=== PATIENT | female | born 1965 | race Asian ===

== ENCOUNTER 2018-03-12 18:34 | Emergency (ER) | payer OTHER, SELFPAY ==
[2018-03-12 18:36] VITALS: BP 192/101; PULSE 75; RESP 20; TEMP 36.2; O2SAT 99; BMI 27.8
--- NOTE | 2018-03-12 18:53 | ED.CHESTPAIN ---
HPI - Chest Pain General Chief Complaint: Chest Pain Stated Complaint: SYMPTOMS OF HEART ATTACK Time Seen by Provider: 03/12/18 18:48 Source: patient Mode of arrival: ambulatory Limitations: no limitations History of Present Illness HPI narrative: Patient is a 53-year-old female sent in from the walk-in clinic with chest pain. She has had left-sided chest pain for the last 3 days it has an once by radiates around to the back. It sometimes hurts when she moves her arm and sometimes when she breathes. She has noted that she has had elevated blood pressure as well. 4 years ago she was told she had high blood pressure but just to monitor at. She denies headache nausea vomiting abdominal pain. The she did travel to [facility] back in November but no recent travel MD complaint: chest pain Related Data Allergies Allergy/AdvReac Type Severity Reaction Status Date / Time peach Allergy Severe Swollen Verified 03/12/18 18:12 mouth/throat, rash apple Allergy Mild Itchy mouth Verified 03/12/18 18:12 Review of Systems Review of Systems GENERAL: Denies chills, fatigue, malaise, fever, sweats, travel HEENT: Denies sinus pain, ear pain, sore throat, difficulty swallowing, neck pain RESPIRATORY: Denies dyspnea, cough, wheezing, hemoptysis, sputum. CARDIOVASCULAR: See HPI GASTROINTESTINAL: Denies nausea, vomiting, abdominal pain, diarrhea, constipation, melena. : Denies dysuria, frequency, incontinence, hematuria, urinary retention, flank pain. MUSCULOSKELETAL: Denies weakness, joint pain, or bony pain SKIN: No rash, no erythema, no pruritus NEUROLOGIC: Denies weakness, dizziness, headache, numbness, change in speech, confusion PSYCHIATRIC: No concerning psychosocial issues. 12 point review of systems is negative except for those stated above and HPI ON LICENSE OF [facility] Medical History Healthy adult (Acute) Social History Smoking Status: Never smoker alcohol intake: never substance use type: does not use Exam Initial Vital Signs Initial Vital Signs: Vital Signs Temperature 97.1 F L 03/12/18 18:36 Pulse Rate 75 03/12/18 18:36 Respiratory Rate 20 03/12/18 18:36 Blood Pressure 192/101 H 03/12/18 18:36 Pulse Oximetry 99 03/12/18 18:36 GENERAL: Well-appearing, well-nourished and in no acute distress. HEENT: Head atraumatic,EOMI, pupils reactive, neck is supple CARDIOVASCULAR: Regular rate and rhythm without murmurs, rubs or gallops. Pain in left 3rd rib space slightly reproducible with palpation and left arm movement RESPIRATORY: Breath sounds equal bilaterally, no wheezes rales or rhonchi. ABDOMEN: Soft, nontender. Normoactive bowel sounds all 4 quadrants. No guarding or rebound. EXTREMITIES: Normal range of motion, no clubbing or edema. Neurovascularly intact NEUROLOGICAL: Alert and oriented x4.Normal gait and speech. Cranial nerves II through XII grossly intact. SKIN: Warm, dry, no laceration, no petechiae, no rashes or lesions. Scores HEART Score Heart Score history: Slightly Suspicious Heart Score EKG: Normal Heart Score Age: 45-64 years old Heart Score risk factors: 1-2 risk factors Heart Score troponin: < or = to normal limit Heart Score Total: 2 PERC Score Age greater than or equal to 50 years: Yes Heart rate greater than or equal to 100 bpm: No Room Air O2 Sat less than 95%: No Unilateral leg swelling: No Recent trauma or surgery: No Hemoptysis: No Prior PE or DVT: No Hormone Use: No Total PERC Score: 1 Course Orders Ordered: Discontinued Medications Aspirin (Aspirin Chew) 324 mg PO NOW ONE Stop: 03/12/18 18:59 Last Admin: 03/12/18 19:20 Dose: 324 mg Vital Signs - 8 hr 03/12/18 20:19 Pulse Rate 66 Respiratory Rate 16 Blood Pressure [Left Arm] 142/84 H Pulse Oximetry 100 MDM - Chest Pain Lab Data Attestation: I reviewed the patient's lab results. Result diagrams: 03/12/18 19:06 03/12/18 19:06 Lab Results 03/12/18 03/12/18 03/12/18 Range/Units 19:06 19:06 19:06 WBC 7.2 (4.5-11.0) X10^3/uL RBC 4.30 (4.0-5.2) X10^6/uL Hgb 13.2 (12.0-16.0) g/dL Hct 37.8 (36-46) % MCV 87.8 (80-100) fL MCH 30.7 (26-34) PG MCHC 35.0 (30-36) % RDW 12.7 (11.6-14.8) % Plt Count 310 (150-400) X10^3/uL Neut % (Auto) 48.9 L (50-75) % Lymph % (Auto) 43.1 H (25-40) % [place] % (Auto) 5.9 (3-14) % Eos % (Auto) 1.7 L (2-4) % Baso % (Auto) 0.4 (0-2) % Neut # (Auto) 3500 (3535-2377) /uL D-Dimer < 200 (<230) ng/mL Sodium 141 (137-145) mmol/L Potassium 5.0 (3.4-5.1) mmol/L Chloride 104 (98-107) mmol/L Carbon Dioxide 25 (22-32) mmol/L BUN 14 (7-17) mg/dL Creatinine 0.50 L (0.52-1.04) mg/dL Estimated GFR > 60.0 (>60) mL/min BUN/Creatinine Ratio 28.0 H (6-22) Glucose 109 H (70-100) mg/dL Calcium 9.7 (8.4-10.2) mg/dL Total Bilirubin 1.2 (0.2-1.3) mg/dL AST 44 H (14-36) IU/L ALT 22 (9-52) IU/L Alkaline Phosphatase 65 (38-126) U/L Total Creatine Kinase 112 (30-135) U/L CK-MB (CK-2) 0.62 (<2.37) ng/mL CK-MB (CK-2) Rel Index 0.6 L (1.5-5.0) % Troponin I < 0.012 (0.01-0.034) ng/mL Total Protein 8.7 H (6.3-8.2) g/dL Albumin 5.1 H (3.5-5.0) g/dL Globulin 3.6 (1.7-4.1) g/dL Albumin/Globulin Ratio 1.4 (1.0-2.8) Lipase 104 (23-300) U/L Imaging Data Chest x-ray: Radiologist's impression: PROCEDURE: XR CHEST 1V INDICATIONS: chest pain TECHNIQUE: One view of the chest was acquired. COMPARISON: None. FINDINGS: Surgical changes and devices: None. Lungs and pleura: No pleural effusions or pneumothorax. Opacity projects over the right fifth and sixth posterior ribs and may represent an EKG lead and otherwise the lungs are clear. Mediastinum: Mediastinal contours appear normal. Heart size is normal. Bones and chest wall: No suspicious bony lesions. Overlying soft tissues appear unremarkable. IMPRESSION: Opacity projecting over the right midlung is likely outside of the body possibly representing an EKG lead. Please correlate with physical exam. Otherwise, no radiographic evidence of acute cardiopulmonary pathology. Dictated by: Celestino Stanton M.D. on 03/12/2018 at 19:32 Approved by: Celestino Stanton M.D. on 03/12/2018 at 19:36 ECG Data Attestation: I personally reviewed and interpreted this ECG as follows: Prior ECG tracings: not available for review MDM Narrative Medical decision making narrative: Patient's pain is worse with movement. Ongoing for the last 3 days low risk for PE and low risk for cardiac disease. Blood pressure decreased significantly without any intervention. Then the lesser recommend she follow up with the primary care physician. Discharge Plan Departure Patient Disposition: Home, Self-Care Clinical Impression: Atypical chest pain Discharge Date/Time: 03/12/18 20:48 Interventions: ED Discharge Assessment Last Done: 03/12/18 20:47 Instructions: Essential Hypertension, DI for Atypical Chest Pain Activity Restrictions/Additional Instructions: *You have been diagnosed with atypical chest pain *What to do: Blood pressure has decreased while in the emergency department, recommend following up with her primary care provider. May require further cardiac testing but at this time not indicated *Continue to take medications as directed *Follow up with your primary care provider in 2-3 days *Return to ER if you should have worsening or changing chest pain, shortness of breath, palpitation or any new, worsening or concerning symptoms
--- NOTE | 2018-03-12 18:58 | DI.RAD.S_ITS ---
PROCEDURE: XR CHEST 1V INDICATIONS: chest pain TECHNIQUE: One view of the chest was acquired. COMPARISON: None. FINDINGS: Surgical changes and devices: None. Lungs and pleura: No pleural effusions or pneumothorax. Opacity projects over the right fifth and sixth posterior ribs and may represent an EKG lead and otherwise the lungs are clear. Mediastinum: Mediastinal contours appear normal. Heart size is normal. Bones and chest wall: No suspicious bony lesions. Overlying soft tissues appear unremarkable. IMPRESSION: Opacity projecting over the right midlung is likely outside of the body possibly representing an EKG lead. Please correlate with physical exam. Otherwise, no radiographic evidence of acute cardiopulmonary pathology. Dictated by: Celestino Stanton M.D. on 03/12/2018 at 19:32 Approved by: Celestino Stanton M.D. on 03/12/2018 at 19:36
[2018-03-12 19:19] LABS: Add Manual Diff / Slide Review NO; Basophils Percent Auto 0.4 % (0-2); Eosinophils Percent Auto 1.7 % (2-4); Hematocrit 37.8 % (36-46); Hemoglobin 13.2 g/dL (12.0-16.0); Lymphocytes Percent Auto 43.1 % (25-40); Mean Corpuscular Hemoglobin 30.7 PG (26-34); Mean Corpuscular Volume 87.8 fL (80-100); Monocytes Percent Auto 5.9 % (3-14); Neutrophils Absolute Auto 3500 /uL (3000-5900); Neutrophils Percent Auto 48.9 % (50-75); Platelet Count 310 X10^3/uL (150-400); Red Cell Distribution Width 12.7 % (11.6-14.8); White Blood Cell Count 7.2 X10^3/uL (4.5-11.0)
[2018-03-12] MEDS: ASPIRIN 81 MG TAB 324 MG PO (19:20)
[2018-03-12 19:31] LABS: Alanine Aminotransferase 22 IU/L (9-52); Albumin 5.1 g/dL (3.5-5.0); Albumin Globulin Ratio 1.4 (1.0-2.8); Alkaline Phosphatase 65 U/L (38-126); Bilirubin Total 1.2 mg/dL (0.2-1.3); Blood Urea Nitrogen 14 mg/dL (7-17); Calcium 9.7 mg/dL (8.4-10.2); Carbon Dioxide 25 mmol/L (22-32); Chloride 104 mmol/L (98-107); Creatine Kinase 112 U/L (30-135); Estimated Glomerular Filt Rate > 60.0 mL/min (>60); Globulin 3.6 g/dL (1.7-4.1); Glucose 109 mg/dL (70-100); Lipase 104 U/L (23-300); Sodium 141 mmol/L (137-145); Total Protein 8.7 g/dL (6.3-8.2)
[2018-03-12 19:35] LABS: Aspartate Aminotransferase 44 IU/L (14-36)
[2018-03-12 19:40] VITALS: BP 144/98; PULSE 64; RESP 16; O2SAT 100
[2018-03-12 19:43] LABS: Troponin I < 0.012 ng/mL (0.01-0.034)
[2018-03-12 19:46] LABS: CKMB % Relative Index 0.6 % (1.5-5.0); Creatine Kinase MB 0.62 ng/mL (<2.37)
[2018-03-12 19:52] LABS: HEMOLYSIS 164 (0-50)
[2018-03-12 19:54] LABS: D Dimer < 200 ng/mL (<230)
[2018-03-12 20:19] VITALS: BP 142/84; PULSE 66; RESP 16; O2SAT 100
== END 2018-03-12 20:48 | disposition home or self-care (01) ==
PROVIDERS: Emergency Provider Emergency Medicine
DX: R07.89 Other chest pain (principal)
CPT/HCPCS: 36591; 71045; 80053; 82550; 82553; 83690; 84484; 85025; 85379; 93005; 99283; 99285

== ENCOUNTER → 2018-08-30 08:47 | Outpatient (CLI) | payer OTHER, SELFPAY ==
[2018-08-30 09:39] LABS: Cholesterol 221 mg/dL (140-199); HDL Cholesterol 40 mg/dL (40-60); LDL Cholesterol Calculated 139 mg/dL (<100); Triglycerides 209 mg/dL (35-150)
[2018-09-02 15:35] LABS: Fecal Immunochemical Test NOT DETECTED
== END ==
PROVIDERS: Visit Provider Family Medicine
DX: I10 Essential (primary) hypertension (principal)
CPT/HCPCS: 80061; 82274

== ENCOUNTER → 2020-04-20 08:56 | Outpatient (CLI) | payer OTHER, SELFPAY ==
[2020-04-20 10:21] LABS: Alanine Aminotransferase 50 IU/L (<35); Albumin 4.6 g/dL (3.5-5.0); Albumin Globulin Ratio 1.4 (1.0-2.8); Alkaline Phosphatase 82 U/L (38-126); Aspartate Aminotransferase 44 IU/L (14-36); BUN Creatinine Ratio 24.6 (6-22); Bilirubin Total 0.6 mg/dL (0.2-1.3); Blood Urea Nitrogen 14 mg/dL (7-17); Calcium 9.7 mg/dL (8.4-10.2); Carbon Dioxide 24 mmol/L (22-32); Chloride 104 mmol/L (98-107); Cholesterol 230 mg/dL (140-199); Estimated Glomerular Filt Rate > 60.0 mL/min (>60); Globulin 3.3 g/dL (1.7-4.1); Glucose 122 mg/dL (70-100); HDL Cholesterol 44 mg/dL (40-60); HEMOLYSIS < 15 (0-50); LDL Cholesterol Calculated 151 mg/dL (<100); Potassium 4.5 mmol/L (3.4-5.1); Sodium 139 mmol/L (137-145); Total Protein 7.9 g/dL (6.3-8.2); Triglycerides 177 mg/dL (35-150)
[2020-04-20 10:26] LABS: Hemoglobin A1C% w Est Avg Glu 6.1 % (4.0-6.0)
[2020-04-20 11:58] LABS: Creatinine Urine Random 68.4 mg/dL
[2020-04-20 12:02] LABS: Microalbumi Creatinin Ratio Ur 10.2 ug/mg CR (<30); Microalbumin Urine Random 0.7 mg/dL (0-1.6)
== END ==
PROVIDERS: PCP Family Medicine; Referring Provider Family Medicine; Visit Provider Family Medicine
DX: I10 Essential (primary) hypertension (principal); R20.0 Anesthesia of skin; Z83.3 Family history of diabetes mellitus
CPT/HCPCS: 36415; 80053; 80061; 82043; 82570; 83036

== ENCOUNTER → 2020-05-14 12:20 | Outpatient (CLI) | payer OTHER, SELFPAY ==
[2020-05-16 08:10] LABS: Fecal Immunochemical Test Negative (Negative)
== END ==
PROVIDERS: PCP Family Medicine; Referring Provider Family Medicine; Visit Provider Family Medicine
DX: Z12.11 Encounter for screening for malignant neoplasm of colon (principal)
CPT/HCPCS: 82274

== ENCOUNTER → 2021-03-14 07:20 | Outpatient (CLI) | payer OTHER, SELFPAY | PROVIDERS: PCP Family Medicine; Visit Provider Physician Assistant | DX: R30.9 Painful micturition, unspecified (principal) | CPT/HCPCS: 87077; 87086; 87147 ==

== ENCOUNTER → 2021-06-26 17:06 | Outpatient (CLI) | payer OTHER, SELFPAY ==
[2021-06-26 17:51] LABS: Add Manual Diff / Slide Review NO; Basophils Absolute Auto 0 /uL (0-100); Basophils Percent Auto 0.3 % (0-2); Eosinophils Absolute Auto 100 /uL (0-450); Hematocrit 35.8 % (36-46); Hemoglobin 12.2 g/dL (12.0-16.0); Lymphocytes Absolute Auto 1900 /uL (1100-4500); Lymphocytes Percent Auto 34.7 % (25-40); Mean Corpuscular Hemoglobin 30.1 PG (26-34); Mean Corpuscular Volume 88.4 fL (80-100); Monocytes Absolute Auto 300 /uL (0-900); Monocytes Percent Auto 6.4 % (3-14); Neutrophils Absolute Auto 3100 /uL (1500-7000); Neutrophils Percent Auto 56.6 % (50-75); Platelet Count 296 X10^3/uL (150-400); Red Blood Cell Count 4.04 X10^6/uL (4.0-5.2); Red Cell Distribution Width 12.6 % (11.6-14.8); White Blood Cell Count 5.4 X10^3/uL (4.5-11.0)
[2021-06-26 18:29] LABS: Alanine Aminotransferase 20 IU/L (<35); Albumin 4.7 g/dL (3.5-5.0); Albumin Globulin Ratio 1.5 (1.0-2.8); Alkaline Phosphatase 78 U/L (38-126); Aspartate Aminotransferase 23 IU/L (14-36); Bilirubin Total 0.7 mg/dL (0.2-1.3); Blood Urea Nitrogen 17 mg/dL (7-17); Calcium 9.5 mg/dL (8.4-10.2); Carbon Dioxide 25 mmol/L (22-32); Chloride 105 mmol/L (98-107); Estimated Glomerular Filt Rate > 60.0 mL/min (>60); Globulin 3.1 g/dL (1.7-4.1); Glucose 85 mg/dL (70-100); HEMOLYSIS < 15 (0-50); Hemoglobin A1C% w Est Avg Glu 5.4 % (4.0-6.0); Sodium 141 mmol/L (137-145); Total Protein 7.8 g/dL (6.3-8.2)
[2021-06-26 18:49] LABS: Creatinine Urine Random 45.8 mg/dL
[2021-06-26 18:54] LABS: Microalbumin Urine Random < 0.6 mg/dL (0-1.6)
[2021-06-28 13:02] LABS: QuantiFERON Mitogen Value >10.00 IU/mL (.); QuantiFERON Nil Value 0.11 IU/mL (.); QuantiFERON TB Gold Plus Negative (Negative); QuantiFERON TB1 Ag Value 0.24 IU/mL (.)
== END ==
PROVIDERS: PCP Family Medicine; Referring Provider Family Medicine; Visit Provider Family Medicine
DX: I10 Essential (primary) hypertension (principal); R73.03 Prediabetes; Z11.9 Encounter for screening for infectious and parasitic diseases, unspecified
CPT/HCPCS: 80053; 82043; 82570; 83036; 85025; 86480

== ENCOUNTER → 2022-07-07 10:04 | Outpatient (CLI) | payer OTHER, SELFPAY ==
[2022-07-09 10:52] LABS: Fecal Immunochemical Test Negative (Negative)
== END ==
PROVIDERS: PCP Family Medicine; Referring Provider Family Medicine; Visit Provider Family Medicine
DX: Z12.11 Encounter for screening for malignant neoplasm of colon (principal)
CPT/HCPCS: 82274

== ENCOUNTER → 2022-07-19 06:59 | Outpatient (CLI) | payer OTHER, SELFPAY ==
[2022-07-19 08:12] LABS: Alanine Aminotransferase 35 IU/L (<35); Albumin 4.5 g/dL (3.5-5.0); Albumin Globulin Ratio 1.5 (1.0-2.8); Alkaline Phosphatase 81 U/L (38-126); Aspartate Aminotransferase 28 IU/L (14-36); BUN Creatinine Ratio 27.3 (6-22); Bilirubin Total 0.7 mg/dL (0.2-1.3); Blood Urea Nitrogen 18 mg/dL (7-17); Calcium 9.4 mg/dL (8.4-10.2); Carbon Dioxide 27 mmol/L (22-32); Chloride 102 mmol/L (98-107); Cholesterol 235 mg/dL (140-199); Estimated Glomerular Filt Rate > 60 mL/min (>60); Globulin 3.1 g/dL (1.7-4.1); Glucose 114 mg/dL (70-100); HDL Cholesterol 43 mg/dL (40-60); HEMOLYSIS < 15 (0-50); LDL Cholesterol Calculated 158 mg/dL (<100); Potassium 4.1 mmol/L (3.4-5.1); Sodium 139 mmol/L (137-145); Total Protein 7.6 g/dL (6.3-8.2); Triglycerides 168 mg/dL (35-150)
[2022-07-19 08:30] LABS: Microalbumi Creatinin Ratio Ur 11.8 ug/mg CR (<30); Microalbumin Urine Random 0.7 mg/dL (0-1.6)
== END ==
PROVIDERS: PCP Family Medicine; Referring Provider Family Medicine; Visit Provider Family Medicine
DX: I10 Essential (primary) hypertension (principal); R73.03 Prediabetes
CPT/HCPCS: 36415; 80053; 80061; 82043; 82570; 83036

== ENCOUNTER → 2023-03-05 07:04 | Outpatient (CLI) | payer OTHER, SELFPAY ==
[2023-03-07 15:11] LABS: QuantiFERON Mitogen Value >10.00 IU/mL (.); QuantiFERON Nil Value 0.12 IU/mL (.); QuantiFERON TB Gold Plus Positive (Negative); QuantiFERON TB1 Ag Value 0.54 IU/mL (.); QuantiFERON TB2 Ag Value 0.51 IU/mL (.)
== END ==
PROVIDERS: PCP Family Medicine; Referring Provider Family Medicine; Visit Provider Family Medicine
DX: Z11.1 Encounter for screening for respiratory tuberculosis (principal)
CPT/HCPCS: 36415; 86480

== ENCOUNTER → 2023-03-14 06:46 | Outpatient (CLI) | payer OTHER, SELFPAY ==
[2023-03-18 03:00] LABS: QuantiFERON Mitogen Value >10.00 IU/mL (.); QuantiFERON Nil Value 0.07 IU/mL (.); QuantiFERON TB Gold Plus Positive (Negative); QuantiFERON TB1 Ag Value 0.47 IU/mL (.)
== END ==
PROVIDERS: PCP Family Medicine; Referring Provider Family Medicine; Visit Provider Family Medicine
DX: Z11.1 Encounter for screening for respiratory tuberculosis (principal)
CPT/HCPCS: 36415; 86480

== ENCOUNTER → 2023-03-21 07:43 | Outpatient (CLI) | payer OTHER, SELFPAY ==
--- NOTE | 2023-03-21 07:44 | DI.RAD.S_ITS ---
PROCEDURE: XR CHEST 2V INDICATIONS: positive TB test TECHNIQUE: 2 views of the chest were acquired. COMPARISON: [facility], CR, XR CHEST 1V, 03/12/2018, 19:14. FINDINGS: Surgical changes and devices: None. Lungs and pleura: Lungs are clear. No pleural effusions or pneumothorax. Mediastinum: Mediastinal contours are normal. Heart size is normal. Bones and chest wall: No suspicious bony abnormalities. Soft tissues appear unremarkable. IMPRESSION: No acute cardiopulmonary abnormality. No radiographic signs of active tuberculosis. Approved by: Ulices Booker M.D. on 03/21/2023 at 13:48
== END ==
PROVIDERS: PCP Family Medicine; Referring Provider Family Medicine; Visit Provider Family Medicine
DX: R76.11 Nonspecific reaction to tuberculin skin test without active tuberculosis (principal)
CPT/HCPCS: 71046

== ENCOUNTER → 2024-04-09 06:39 | Outpatient (CLI) | payer OTHER, SELFPAY | PROVIDERS: PCP Family Medicine; Referring Provider Family Medicine; Visit Provider Family Medicine | DX: Z02.1 Encounter for pre-employment examination (principal) | CPT/HCPCS: 36415; 86480 ==

== ENCOUNTER → 2024-05-19 09:14 | Outpatient (CLI) | payer OTHER, SELFPAY ==
[2024-05-19 10:29] LABS: Add Manual Diff / Slide Review NO; Basophils Absolute Auto 0 /uL (0-100); Basophils Percent Auto 0.3 % (0-2); Eosinophils Absolute Auto 100 /uL (0-450); Eosinophils Percent Auto 1.4 % (2-4); Hematocrit 37.2 % (36-46); Hemoglobin 12.8 g/dL (12.0-16.0); Lymphocytes Absolute Auto 2000 /uL (1100-4500); Lymphocytes Percent Auto 36.3 % (25-40); Mean Corpuscular HGB Conc 34.3 % (30-36); Mean Corpuscular Hemoglobin 30.5 PG (26-34); Mean Corpuscular Volume 88.9 fL (80-100); Monocytes Absolute Auto 300 /uL (0-900); Monocytes Percent Auto 6.1 % (3-14); Neutrophils Absolute Auto 3000 /uL (1500-7000); Neutrophils Percent Auto 55.9 % (50-75); Platelet Count 309 X10^3/uL (150-400); Red Blood Cell Count 4.19 X10^6/uL (4.0-5.2); Red Cell Distribution Width 12.5 % (11.6-14.8); White Blood Cell Count 5.4 X10^3/uL (4.5-11.0)
[2024-05-19 10:54] LABS: Alanine Aminotransferase 48 IU/L (<35); Albumin 4.2 g/dL (3.5-5.0); Albumin Globulin Ratio 1.2 (1.0-2.8); Alkaline Phosphatase 79 U/L (38-126); Aspartate Aminotransferase 35 IU/L (14-36); BUN Creatinine Ratio 25.9 (6-22); Bilirubin Total 0.6 mg/dL (0.2-1.3); Blood Urea Nitrogen 15 mg/dL (7-17); Calcium 9.3 mg/dL (8.4-10.2); Carbon Dioxide 28 mmol/L (22-32); Chloride 106 mmol/L (98-107); Cholesterol 183 mg/dL (140-199); Estimated Glomerular Filt Rate > 60 mL/min (>60); Globulin 3.5 g/dL (1.7-4.1); Glucose 112 mg/dL (70-100); HDL Cholesterol 41 mg/dL (40-60); HEMOLYSIS < 15 (0-50); LDL Cholesterol Calculated 115 mg/dL (<100); Potassium 4.5 mmol/L (3.4-5.1); Sodium 138 mmol/L (137-145); Total Protein 7.7 g/dL (6.3-8.2); Triglycerides 137 mg/dL (35-150)
[2024-05-19 11:05] LABS: Creatinine Urine Random 71.69 mg/dL
[2024-05-19 11:20] LABS: Microalbumin Urine Random < 0.6 mg/dL (0-1.6)
[2024-05-19 11:37] LABS: Thyroid Stimulating Hormone 2.88 uIU/mL (0.47-4.68)
[2024-05-19 11:56] LABS: Vitamin B12 317 pg/mL (239-931)
[2024-05-19 18:51] LABS: Hemoglobin A1C% w Est Avg Glu 5.9 % (4.0-6.0)
== END ==
PROVIDERS: PCP Family Medicine; Referring Provider Family Medicine; Visit Provider Family Medicine
DX: R20.2 Paresthesia of skin (principal); R73.03 Prediabetes
CPT/HCPCS: 36415; 80053; 80061; 82043; 82570; 82607; 83036; 84443; 85025